=== PATIENT | female | born 1985 | race Caucasian/White ===

== ENCOUNTER 2017-09-20 10:11 | Emergency (ER) | payer OTHER ==
[2017-09-20 12:31] LABS: #Eosinphils 0.1 thou/uL (0.0-0.7); #Lymphocytes 1.2 thou/uL (1.20-3.40); #Monocytes 0.6 thou/uL (0.11-0.59); #Neutrophils 5.6 thou/uL (1.40-6.50); %Basophils 0.5 % (0.0-1.0); %Eosinophils 0.9 % (0.0-10.0); %Lymphocytes 16.3 % (21.0-51.0); %Monocytes 8.1 % (0.0-10.0); %Neutrophils 74.2 % (42.0-75.0); Hemoglobin 13.2 g/dL (12.0-16.0); Mean Corpuscular Hemoglobin 32.3 pg (27.0-31.0); Mean Corpuscular Volume 92.2 fl (81.0-99.0); Mean Platelet Volume 6.5 fL (7.4-10.4); Platelet Count 349 thou/uL (130-400); RBC Distribution Width 11.8 % (11.5-14.5); Red Blood Cell (RBC) Count 4.09 mill/uL (4.20-5.40); White Blood Cell (WBC) Count 7.6 thou/uL (4.8-10.8)
[2017-09-20 12:36] LABS: Anion Gap 11 mmol/L (10-20); BUN (Urea Nitrogen) 8 mg/dL (7.0-18.7); Calc. Creatinine Clearance 0 mL/min (70-130); Calcium 9.8 mg/dL (7.8-10.44); Carbon Dioxide 23 mmol/L (22-29); Chloride 109 mmol/L (98-107); Estimated GFR-MDRD 86; Glucose 101 mg/dL (70-105); Potassium 3.8 mmol/L (3.5-5.1); Sodium 139 mmol/L (136-145)
--- NOTE | 2017-09-20 12:53 | CT ---
BRAIN CT WITHOUT IV CONTRAST: Date: 09/20/17 HISTORY: 31-year-old female with headache, vision loss, and numbness. FINDINGS: No focal mass or midline shift. No intra or extra-axial hemorrhage. There is soft tissue expansile pr ocess in the left maxillary sinus with some extension into the left ethmoid sinus. There is some muco khurram disease in the left frontal sinus. IMPRESSION: 1. No acute intracranial process. 2. Expansile soft tissue process in the left maxillary sinus with extension into the left ethmoid si nus, as well as some mucosal disease in the left frontal sinus. POS: ARNOLDO
== END 2017-09-20 13:04 | disposition home or self-care (01) ==
LOC: ERS 10:11
DX: R51 Headache (principal); J45.909 Unspecified asthma, uncomplicated; Z79.899 Other long term (current) drug therapy
CPT/HCPCS: 36415; 70450; 80048; 85025; 86140

== ENCOUNTER 2018-06-25 10:20 | Observation (INO) | payer OTHER ==
[2018-06-25] MEDS ORDERED: EPINEPHrine 1 MG/ML AMP ONE (12:02)
[2018-06-25] MEDS ORDERED: diphenhydrAMINE 50 MG CAP ONE (12:05)
[2018-06-25 12:47] LABS: #Lymphocytes 1.4 thou/uL (1.20-3.40); #Monocytes 0.2 thou/uL (0.11-0.59); #Neutrophils 14.5 thou/uL (1.40-6.50); %Basophils 0.2 % (0.0-1.0); %Eosinophils 0.1 % (0.0-10.0); %Lymphocytes 8.8 % (21.0-51.0); %Monocytes 1.4 % (0.0-10.0); %Neutrophils 89.4 % (42.0-75.0); Hemoglobin 13.2 g/dL (12.0-16.0); Mean Corpuscular HGB CONC 32.5 g/dL (32.0-36.0); Mean Corpuscular Hemoglobin 28.7 pg (27.0-31.0); Mean Corpuscular Volume 88.5 fL (78.0-98.0); Mean Platelet Volume 6.9 fL (7.4-10.4); Platelet Count 431 thou/uL (130-400); RBC Distribution Width 12.7 % (11.5-14.5); Red Blood Cell (RBC) Count 4.61 mill/uL (4.20-5.40); White Blood Cell (WBC) Count 16.2 thou/uL (4.8-10.8)
[2018-06-25] MEDS ORDERED: Ibuprofen 800 MG TAB ONE (12:58)
[2018-06-25 13:08] LABS: Anion Gap 18 mmol/L (10-20); BUN (Urea Nitrogen) 10 mg/dL (7.0-18.7); Calc. Creatinine Clearance 0 mL/min (70-130); Calcium 9.5 mg/dL (7.8-10.44); Carbon Dioxide 16 mmol/L (22-29); Chloride 107 mmol/L (98-107); Estimated GFR-MDRD 86; Glucose 140 mg/dL (70-105); Potassium 3.1 mmol/L (3.5-5.1); Sodium 138 mmol/L (136-145)
[2018-06-25] MEDS ORDERED: Acetaminophen 325 MG TAB PO PRN (14:44)
[2018-06-25] MEDS ORDERED: diphenhydrAMINE 25 MG CAP PO PRN (14:45)
[2018-06-25] MEDS ORDERED: diphenhydrAMINE 50 MG/ML VIAL IVP PRN (14:46)
[2018-06-25 14:54] VITALS: BMI 39.1
[2018-06-25] MEDS: Famotidine 20 MG TAB PO SCH (21:23)
--- NOTE | 2018-06-25 21:58 | HP ---
CHIEF COMPLAINT: Anaphylaxis. HISTORY OF PRESENT ILLNESS: Patient is a very pleasant 32-year-old female who presented to the [facility] today from her allergy clinic with anaphylaxis. The patient states that she normally sees ENT or the allergy clinic for allergies to multiple environmental allergens. The patient stated that she s tarted this back in February where she went every Monday of the week; however, whenever she would go home , she started having some itching; however, no hives. At this time when she had both allergy apparen tly, it seems that this time she was desensitized and she started having some tingling and then she s tarted noticing that her lip started swelling, then she started feeling her tongue started swelling, so she went back to the nursing, told the nurse about her symptoms. At the clinic today, she received some Zyrtec, some Decadron and also she was given epinephrine x1. The patient's symptoms continued to worsen and did not improve at this time. Second epinephrine was given to the patient and the dereck ent was transferred to the hospital for further evaluation. The patient in the ER, continued to have some chest tightness continued to have tingling around her mouth and feeling swelling of her tongue. She was given another dose of epinephrine and also was given 20 of Solu-Medrol and was also given s ome Benadryl and some Pepcid. The patient currently complains of some chest tightness and feels that she cannot just take a nice deep breath; however, she denies any itching or any difficulty breathing . PAST MEDICAL HISTORY: The patient has a history of sinusitis. SURGICAL HISTORY: She has had some sinus surgery where they have cleaned out her sinuses and she was told that she had a significant infection and at this time that is when the allergy testing started. She also has a history of asthma as a child. SOCIAL HISTORY: Occasional alcohol. Denies any drug use or smoking. FAMILY HISTORY: Mother has diabetes and hypertension, and father has a history of multiple clots. REVIEW OF SYSTEMS: All negative except for the ones mentioned above in the HPI. PHYSICAL EXAMINATION: VITAL SIGNS: Temperature of 97.7, 86, 14, 98% on room air. Blood pressure is 130/60. GENERAL: She is awake, alert, oriented x3. No tongue swelling or lip swelling noted. HEENT: Normocephalic, atraumatic. No hives, or redness noted around her mouth area. LUNGS: Clear to auscultation, rhonchi or wheezes noted. CARDIOVASCULAR: S1, S2 present. No murmurs, rubs or gallops. ABDOMEN: Soft, nontender. Bowel sounds are present x2. EXTREMITIES: No edema. Pedal pulses positive x2. She has no rash around her allergy site area. SKIN: There is no hives either neurovascular aldrich. She has got no focal deficits noted. LABORATORY DATA: WBCs of 16.2, hemoglobin of 13.2, hematocrit of 40.8, platelets of 431. Chemistry: Sodium of 138, potassium of 3.1, BUN of 10, creatinine of 0.7, glucose of 140 and CO2 was low at 16 . ASSESSMENT AND PLAN: The patient is a very pleasant 32-year-old female who presents to the hospital with anaphylaxis. 1. Anaphylaxis. The patient had been treated a couple of times in the clinic with epinephrine given her significant allergy reaction. She also was given steroids in the ER and also was given Decadron in the clinic. We will start the patient on Pepcid b.i.d. We will also do Benadryl p.r.n. We will a lso start the patient on a Medrol Dosepak and will continue her Qiana, which she takes at home. Th e patient states that the arm that received that she started having the reaction was most likely seco ndary to the certain category of plenty of vegetations, including trees and wood. This is according to the patient and the patient's girlfriend. 2. Deep venous thrombosis prophylaxis. We will put the patient on sequential compression devices.
[2018-06-26 05:14] LABS: Anion Gap 12 mmol/L (10-20); BUN (Urea Nitrogen) 11 mg/dL (7.0-18.7); Calc. Creatinine Clearance 163 mL/min (70-130); Calcium 9.5 mg/dL (7.8-10.44); Carbon Dioxide 21 mmol/L (22-29); Chloride 107 mmol/L (98-107); Estimated GFR-MDRD Greater than 90; Glucose 121 mg/dL (70-105); Sodium 136 mmol/L (136-145)
[2018-06-26 05:46] LABS: Band 14 % (5-11); Hemoglobin 12.7 g/dL (12.0-16.0); Lymphocytes 6 % (21-51); MDiff Complete? YES; Mean Corpuscular HGB CONC 32.6 g/dL (32.0-36.0); Mean Corpuscular Hemoglobin 28.7 pg (27.0-31.0); Mean Corpuscular Volume 88.1 fL (78.0-98.0); Mean Platelet Volume 7.1 fL (7.4-10.4); Monocytes 4 % (0-10); Neutrophil 76 % (42-75); Platelet Count 391 thou/uL (130-400); RBC Distribution Width 12.7 % (11.5-14.5); Red Blood Cell (RBC) Count 4.43 mill/uL (4.20-5.40); White Blood Cell (WBC) Count 24.3 thou/uL (4.8-10.8)
[2018-06-26] MEDS: Famotidine 20 MG TAB PO SCH (08:58)
[2018-06-26] MEDS ORDERED: Loratadine/Pseudoephedrine 10/240 mg Tablet PO SCH (09:00)
[2018-06-26] MEDS ORDERED: methylPREDNISolone 4 mg Tablet PO SCH (09:15)
[2018-06-26 11:37] VITALS: BP 118/60; TEMP 97.7
--- NOTE | 2018-06-26 20:57 | DIS ---
DATE OF ADMISSION: 06/25/2018 DATE OF DISCHARGE: 06/26/2018 DISCHARGE DIAGNOSES: Anaphylaxis. HOSPITAL COURSE: The patient is a very pleasant 32-year-old female, who presented to the hospital fr om the allergy clinic for swelling around her lips, her tongue, and just tingling all over her body. The patient was given 2-3 rounds of epinephrine with some steroids with some Zyrtec and Pepcid. Sin ce she had continuing of her symptoms, she was admitted overnight for observation. The patient was a lso started on a Medrol Dosepak. She has been doing well fairly overnight, feels much better, and is ready to go home. The patient will be discharged home. She will follow up with her primary and her underwriting director as needed. HOME MEDICATIONS: She is going to continue her Qiana as normal 1 daily, and I gave her Medrol Dose radha and Pepcid 20 mg b.i.d. PHYSICAL EXAMINATION: VITAL SIGNS: 97.5, 71, 15, 96% on room air, 109/61. GENERAL: She is awake, alert, and oriented x3. There is no pain or distress. CARDIOVASCULAR: S1, S2 present. No murmurs, rubs, or gallops. ABDOMEN: Soft, nontender. Bowel sounds are present x2. EXTREMITIES: No edema. Pedal pulses are present x2. Again, she will be discharged home. She will follow up with her primary and her underwriting director.
[2018-06-27] MEDS ORDERED: methylPREDNISolone 4 mg Tablet PO SCH (09:00)
== END 2018-06-26 12:00 | disposition home or self-care (01) ==
LOC: ERS 10:20 → IMCU/EMU 14:15
PROVIDERS: ADMIT Internal Medicine; ATTEND Internal Medicine
DX: T78.2XXA Anaphylactic shock, unspecified, initial encounter (principal); Z79.899 Other long term (current) drug therapy; Z98.890 Other specified postprocedural states
CPT/HCPCS: 36415; 80048; 85025; 96372; 96374; 96375; G0378; J0171; J1200; J2920